=== PATIENT | female | born 1935 | race African-American/Black ===

== ENCOUNTER → 2019-07-04 | Day surgery (SDC) | payer OTHER ==
[2019-07-01 15:53] LABS: BASOPHILS % 0.5 % (0.0-1.0); EOSINOPHILS # (AUTO) 0.3 (0.0-0.4); EOSINOPHILS % 3.9 % (0.0-6.0); HEMATOCRIT 36.5 % (34.2-44.1); HEMOGLOBIN 11.7 g/dL (12.0-16.0); LYMPHOCYTES # (AUTO) 2.8 (1.0-3.2); LYMPHOCYTES % 35.9 % (18.0-39.1); MEAN CORPUSCULAR HEMOGLOBIN 29.3 pg (28-32); MEAN CORPUSCULAR HGB CONC 32.1 g/dL (31-35); MEAN CORPUSCULAR VOLUME 91.5 fL (81-99); MONOCYTES # (AUTO) 0.9 (0.2-0.8); MONOCYTES % 11.1 % (4.4-11.3); NEUTROPHILS # (AUTO) 3.8 (2.1-6.9); NEUTROPHILS % 48.2 % (38.7-80.0); PLATELET COUNT 204 x10e3/uL (140-360); RED BLOOD COUNT 3.99 x10e6/uL (3.6-5.1); RED CELL DISTRIBUTION WIDTH 14.6 % (11.7-14.4)
--- NOTE | 2019-07-01 16:05 | Diagnostic Imaging Report ---
Chest, PA and lateral. History: Preoperative condition. Comparison: 04/16/2017. Discussion: The heart is within normal limits of size. The mediastinal and hilar contours are unremarkable. A calcified granuloma is noted in the left midlung zone and is unchanged from prior examination. No focal consolidation, pleural effusion, or pneumothorax. Cardiac port projects over the left chest. IMPRESSION: No radiographic evidence of acute cardiopulmonary abnormality. Signed by: Eulogio Prado MD on 07/01/2019 4:01 PM
[~2019-07-04] MED LIST: ALEVE220 MG; AMLODIPINE BESYL5 MG PO; ASPIRIN81 MG; CALCIUM 600 +1 EAC6; CITALOPRAM HBR20 MG PO; COSOPT EYE DROP10 ML; CRESTOR10 MG PO; DEXAMETHASONE SOD PHOS INJ 4 MG/ML VIAL ONE; FENTANYL CITRATE/PF 100MCG/2 ML INJ ONE; FEXOFENADINE H180 MG; FLAXSEED OIL1000 M1; IBUPROFEN200 MG PO; KEFLEX500 MG PO; LIDOCAINE HCL 2% JELLY 5 ML TUBE ONE; LIDOCAINE HCL 2% LOCAL INJ 5 ML SDV VIAL INJ ONE; LOSARTAN POTAS100 MG PO; MECLIZINE HCL12.5 MG PO; MIDAZOLAM HCL 2 MG/2 ML VIAL ONE; MULTIPLE VITAM1 EAC1; NORCO 5-325 TA1 EACH PO; OMEPRAZOLE40 MG; ONDANSETRON HCL INJ 2MG/ML 2ML 2 MG/ML VIAL ONE; PROPOFOL IV EMULSION 10 MG/ML 20 ML VIAL ONE; SEVOFLURANE INHAL SOLN 250 ML PEN BTL ONE; SIMVASTATIN40 MG PO; TYLENOL PM; XALATAN2.5 ML
--- NOTE | 2019-07-04 13:35 | Operative Report ---
DATE OF PROCEDURE: SURGEON: Chelsea Ocampo MD PREOPERATIVE DIAGNOSIS: Thickened endometrium. POSTOPERATIVE DIAGNOSIS: Thickened endometrium. PROCEDURE: Hysteroscopy, D and C. COMPLICATIONS: None. ESTIMATED BLOOD LOSS: Minimal. DESCRIPTION OF PROCEDURE: The patient was taken to the OR. General anesthesia was induced. She was prepped and draped in a sterile fashion and placed in dorsal lithotomy position. After examination under anesthesia. Atrophic vagina. Normal size uterus. No adnexal masses. Right angle retractor was placed inside the vagina. Cervix was grasped with single-tooth tenaculum. Cervix was dilated to Hegar 8. Cavity length measured about 7 cm. Hysteroscope was introduced using saline for uterine distention showed normal atrophic uterine cavity. Hysteroscope was removed. Sharp curettings were obtained and sent to pathology. The patient tolerated the procedure well. Lap, instruments, and needle counts were correct x2 at the end of the procedure. Chelsea Ocampo MD DD/ELISSAL /[id number]
[2019-07-04 14:15] VITALS: BP 147/82
--- OUTSIDE RECORDS SUMMARY | 2019-07-08 12:49 | XMS REPORT ---
Author [facility] Address Unknown Phone Unavailable Care Team Providers Care Data Collector Name Role Phone IZA FIGUEROA Unavailable Unavailable Kiki RAMOS Unavailable Unavailable Problems This patient has no known problems. Allergies, Adverse Reactions, Alerts This patient has no known allergies or adverse reactions. Medications This patient has no known medications. Encounters Start Date/Time End Date/Time Encounter Type Admission Type Attending [facility] Care Facility Care Department Encounter ID 2019-03-25 17:45:55 Outpatient [facility] [id number] 2018-11-04 20:43:00 2018-11-04 20:43:00 Outpatient E [facility]SE MED [id number] Results Test Description Test Time Test Comments Text Results Atomic Results Result Comments CHEST 2 VIEWS 2019-07-01 16:00:00 [place] [address] Patient Name: QUIQUE AREVALO MR #: [id number] : 1935 Age/Sex: 84/F Req #: [id number] Adm Physician: Ordered by: IZA FIGUEROA MD Report #: [id number] Location: OR Room/Bed: Procedure: [id number] DX/CHEST 2 VIEWS Exam Date: 07/01/19 Exam Time: 1550 REPORT STATUS: Signed Chest, PA and lateral. History: Preoperative condition. Comparison: 04/16/2017. Discussion: The heart is within normal limits of size. The mediastinal and hilar contours are unremarkable. A calcified granuloma is noted in the left midlung zone and is unchanged from prior examination. No focal consolidation, pleural effusion, or pneumothorax. Cardiac port projects over the left chest. IMPRESSION: No radiographic evidence of acute cardiopulmonary abnormality. Signed by: Eulogio Rosenberg MD on 07/01/2019 4:01 PM Dictated By: EULOGIO ROSENBERG MD 1601 Transcribed By: GREGORIA on 07/01/19 1601 COPY TO: IZA FIGUEROA MD DIAG MAMM BILATERAL MATTHIEU CAD DIGITAL 2019-02-18 12:13:48 - DIAG MAMM BILATERAL MATTHIEU CAD DIGITALBILATERAL DIGITAL DIAGNOSTIC MAMMOGRAM 3D/2D WITH CAD: 02/18/2019CLINICAL: Previous breast cancer. Digital breast tomosynthesis was performed in addition to routine CC and MLO views. Current mammographic images were evaluated by either a [employer] M-Vu or a [employer]cker CAD (computer aided detection system). Comparison is made to exams dated 08/28/2016 mammogram, 08/27/2015 mammogram, and 08/22/2014 mammogram - [facility]. There are scattered fibroglandular tissues in both breasts. The left breast has been surgically removed. No suspicious mass, architectural distortion, malignant type calcification, or lymph node abnormality detected. INCOMPLETE ASSESSMENT: ADDITIONAL IMAGING EVALUATION RECOMMENDEDBilateral ultrasound pending for addit ional evaluation. Resume annual screening mammography in one year. - BREAST ULTRASOUND BILATERALULTRASOUND OF BOTH BREASTS AND BOTH AXILLA: 02/18/2019Comparison is made to exams dated 08/28/2016 mammogram, 08/27/2015 mammogram, and 08/22/2014 mammogram - [facility]. Real-time ultrasound of both breasts and both axilla and clinical breast exam was performed. No abnormalities were seen sonographically in the right breast or either axilla. The left breast has been surgically removed. The chest wall shows no abnormalities. Clinical breast exam was unremarkable. IMPRESSION: BENIGN There is no sonographic evidence of malignancy. Patient has been informed that she should have screening mammogram and supplemental ultrasound in 1 year.Kathryn Carvalho M.D. dm/:02/18/2019 12:13:48 copy to: Matteo Robertson MD, ph: [phone], fax: [phone] Technologist: Michell Schwab , [facility] sent: BIRADS 1-2 Combo FU Letter Mammogram BI- RADS: 0 Indeterminate Ultrasound BI-RADS: 2 Benign BREAST ULTRASOUND BILATERAL 2019-02-18 12:13:48 - DIAG MAMM BILATERAL MATTHIEU CAD DIGITALBILATERAL DIGITAL DIAGNOSTIC MAMMOGRAM 3D/2D WITH CAD: 02/18/2019CLINICAL: Previous breast cancer. Digital breast tomosynthesis was performed in addition to routine CC and MLO views. Current mammographic images were evaluated by either a [employer]Way[employer] M-Vu or a [employer] CAD (computer aided detection system). Comparison is made to exams dated 08/28/2016 mammogram, 08/27/2015 mammogram, and [facility] There are scattered fibroglandular tissues in both breasts. The left breast has been surgically removed. No suspicious mass, architectural distortion, malignant type calcification, or lymph node abnormality detected. INCOMPLETE ASSESSMENT: ADDITIONAL IMAGING EVALUATION RECOMMENDEDBilateral ultrasound pending for addit ional evaluation. Resume annual screening mammography in one year. - BREAST ULTRASOUND BILATERALULTRASOUND OF BOTH BREASTS AND BOTH AXILLA: 02/18/2019Comparison is made to exams dated 08/28/2016 mammogram, 08/27/2015 mammogram, and [facility]/2014 [facility]. Real-time ultrasound of both breasts and both axilla and clinical breast exam was performed. No abnormalities were seen sonographically in the right breast or either axilla. The left breast has been surgically removed. The chest wall shows no abnormalities. Clinical breast exam was unremarkable. IMPRESSION: BENIGN There is no sonographic evidence of malignancy. Patient has been informed that she should have screening mammogram and supplemental ultrasound in 1 year.Kathryn Carvalho M.D. dm/:02/18/2019 12:13:48 copy to: Matteo Robertson MD, ph: [phone], fax: [phone] Technologist: Michell FULLER, [facility] BIRADS 1-2 Combo FU Letter Mammogram BI- RADS: 0 Indeterminate Ultrasound BI-RADS: 2 Benign DIAG MAMM BILATERAL MATTHIEU CAD DIGITAL 2019-02-18 12:13:48 - DIAG MAMM BILATERAL MATTHIEU CAD DIGITALBILATERAL DIGITAL DIAGNOSTIC MAMMOGRAM 3D/2D WITH CAD: 02/18/2019CLINICAL: Previous breast cancer. Digital breast tomosynthesis was performed in addition to routine CC and MLO views. Current mammographic images were evaluated by either a [employer] M-Vu or a [employer] CAD (computer aided detection system). Comparison is made to exams dated 08/28/2016 mammogram, 08/27/2015 mammogram, and 08/22/2014 mammogram - [facility] There are scattered fibroglandular tissues in both breasts. The left breast has been surgically removed. No suspicious mass, architectural distortion, malignant type calcification, or lymph node abnormality detected. INCOMPLETE ASSESSMENT: ADDITIONAL IMAGING EVALUATION RECOMMENDEDBilateral ultrasound pending for addit ional evaluation. Resume annual screening mammography in one year. - BREAST ULTRASOUND BILATERALULTRASOUND OF BOTH BREASTS AND BOTH AXILLA: 02/18/2019Comparison is made to exams dated 08/28/2016 mammogram, 08/27/2015 mammogram, and 08/22/2014 mammogram - [facility]-. Real-time ultrasound of both breasts and both axilla and clinical breast exam was performed. No abnormalities were seen sonographically in the right breast or either axilla. The left breast has been surgically removed. The chest wall shows no abnormalities. Clinical breast exam was unremarkable. IMPRESSION: BENIGN There is no sonographic evidence of malignancy. Patient has been informed that she should have screening mammogram and supplemental ultrasound in 1 year.Kathryn Carvalho M.D. dm/:02/18/2019 12:13:48 copy to: Matteo Robertson MD, ph: [phone], fax: [phone] Technologist: Michell FULLER, [facility] sent: BIRADS 1-2 Combo FU Letter Mammogram BI- RADS: 0 Indeterminate Ultrasound BI-RADS: 2 Benign CHEST 2 VIEWS [place] [address] Patient Name: QUIQUE AREVALO MR #: [id number] : 1935 Age/Sex: 82/F Req #: [id number] [facility] Physician: Ordered by: PERCY RAMOS MD Report #: [id number] Location: OR Room/Bed: Procedure: [id number] DX/CHEST 2 VIEWS Exam Date: 04/16/17 Exam Time: 1130 REPORT STATUS: Signed PROCEDURE: CHEST 2 VIEWS TECHNIQUE: PA and lateral chest INDICATION: Preoperative evaluation for left breast mastectomy COMPARISON: None. FINDINGS: Lungs are clear and symmetrically inflated. Left calcified granuloma. No pleural effusions. Normal heart size. Moderate atherosclerosis of the descending thoracic and abdominal aorta. Intact skeleton. CONCLUSION: No acute abnormality. Dictated by: Natasha Medley M.D. on 04/16/2017 at 12:04 Electronically approved by: Natasha Medley M.D. on 04/16/2017 at 12:04 Dictated By: NATASHA MEDLEY MD 1205 Transcribed By: HERSON on 04/16/17 1205 COPY TO: PERCY RAMOS MD
--- OUTSIDE RECORDS SUMMARY | 2019-07-08 12:50 | XMS REPORT | Summary of Care ---
Author Author Rama Bella M.A. Organization Unknown Address [facility] Phone Unavailable Care Team Providers Care Glass Polisher Name Role Phone MOLINA Meza, MARY Unavailable Unavailable TAWNYA Acosta, COLLIN Unavailable Maryam HOROWITZ M.D., CAROLIN Unavailable Maryam BOWLING MD [place], COLLIN Le Unavailable Unavailable CARLOS MANUEL MCKOY, CAROLIN Unavailable Unavailable VALERIANO MCKOY [place], JAYASHREE Unavailable Unavailable LUISA JIMENEZ, PHIL Unavailable Unavailable Unavailable Unavailable Functional Status Name Dates Details Functional status health issues are not documented Status: Name Dates Details Cognitive status health issues are not documented Status: Problems Name Dates Details Eczema, allergic (692.9, L23.9) Status: Active Preventative health care (V70.0, Z00.00) Status: Active Colon cancer screening (V76.51, Z12.11) Status: Active Left low back pain (724.2, M54.5) Status: Active Rib pain (786.50, R07.81) Status: Active TMJ tenderness (524.62, M26.629) Status: Active Subungual hematoma of right foot, initial encounter (924.20, S90.221A) Status: Active Otitis media, right (382.9, H66.91) Status: Active Cerumen impaction (380.4, H61.20) Status: Active Breast cancer screening (V76.10, Z12.39) Status: Active Mammogram abnormal (793.80, R92.8) Status: Active Vertigo (780.4, R42) Status: Active Urinary tract infection (599.0, N39.0) Status: Active Breast cancer, female (174.9, C50.919) Status: Active Pain in both wrists (719.43, M25.531) Status: Active Subluxation of scapulothoracic joint (831.09) Status: Active Orthostasis (458.0, I95.1) Status: Active Hematochezia (578.1, K92.1) Status: Active Nausea and vomiting (787.01, R11.2) Status: Active Special Services Analysis Of Computerized Data Status: Active Duration Of Encounter - Review Of Prior Records (___ min) Status: Active Cataract, unspecified cataract type, unspecified laterality (366.9, H26.9) Status: Active Vasovagal near syncope (780.2, R55) Status: Active OM (onychomycosis) (110.1, B35.1) Status: Active Hypokalemia (276.8, E87.6) Status: Active Wax in ear (380.4, H61.20) Status: Active Stroke (434.91, I63.9) Status: Active Hyperlipidemia (272.4, E78.5) Status: Active Pulmonary hypertension (416.8, I27.20) Status: Active On statin therapy (V58.69, Z79.899) Status: Active Abnormal computed tomography of abdomen and pelvis (793.6, R93.5) Status: Active Excessive cerumen in right ear canal (380.4, H61.21) Status: Active Annual physical exam (V70.0, Z00.00) Status: Active Counseling regarding advanced directives (V65.49, Z71.89) Status: Active Acid reflux disease (530.81, K21.9) Status: Active Anemia, unspecified type (285.9, D64.9) Status: Active Arthropathy, chondrocalcinosis, pyrophosphate, 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, 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) Status: Active Back pain (724.5, M54.9) Status: Active Benign paroxysmal positional vertigo (386.11, H81.10) Status: Active Carcinoma of left female breast, unspecified estrogen receptor status, unspecified site of breast (174.9, C50.912) Status: Active Constipation (564.00, K59.00) Status: Active Decreased renal function (593.9, N28.9) Status: Active Depression (311, F32.9) Status: Active Diverticulosis (562.10, K57.90) Status: Active Essential hypertension, benign (401.1, I10) Status: Active Glaucoma of both eyes (365.9, H40.9) Status: Active Hypercholesterolemia (272.0, E78.00) Status: Active 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 * Start : 17-May-2014 Active Calcium 600+D TABS TAKE 1 TABLET DAILY * Refills: 0 Active Cosopt SOLN INSTILL 2 DROP TWICE DAILY * Refills: 0 Active Flaxseed Oil 1000 MG Oral Capsule TAKE 1 CAPSULE DAILY * Refills: 0 Active Multivitamins TABS TAKE 1 TABLET DAILY. * Refills: 0 Active Xalatan 0.005 % Ophthalmic Solution INSTILL 1 DROP INTO AFFECTED EYE(S) ONCE DAILY DIRECTED. * Refills: 0 Active amLODIPine Besylate 5 MG Oral Tablet TAKE 1 TABLET BY MOUTH TWICE DAILY * Quantity: 60 Refills: 5 MARY AUGUSTE N.P. * Start : 10-Dec-2018 Active Tylenol 8 Hour Arthritis Pain 650 MG Oral Tablet Extended Release TAKE ONE TABLET TWICE. * Quantity: 60 Refills: 3 COLLIN BOWLING M.D. * Start : 23-Aug-2018 Active Polyethylene Glycol 3350 Oral Powder MIX 1 CAPFUL IN 8 OUNCES OF WATER AND DRINK DAILY DIRECTED. * Quantity: 527 Refills: 1 COLLIN BOWLING M.D. * Start : 22-Oct-2018 Active Carvedilol 3.125 MG Oral Tablet TAKE 1 TABLET BY MOUTH TWICE DAILY * Quantity: 180 Refills: 1 COLLIN BOWLING M.D. * Start : 09-Nov-2018 Active Citalopram Hydrobromide 10 MG Oral Tablet TAKE 1 TABLET DAILY. * Quantity: 90 Refills: 1 COLLIN BOWLING M.D. Active Ciclopirox 8 % External Solution APPLY AND GENTLY MASSAGE INTO AFFECTED AREA(S) TWICE DAILY. * Quantity: 1 Refills: 4 COLLIN BOWLING M.D. * Start : 09-Dec-2018 End : 08-May-2019 Active 6.6 ML Bottle Clopidogrel Bisulfate 75 MG Oral Tablet TAKE 1 TABLET BY MOUTH DAILY * Quantity: 90 Refills: 1 COLLIN BOWLING M.D. * Start : 31-Dec-2018 Active Aspirin EC Low Dose 81 MG Oral Tablet Delayed Release TAKE 1 TABLET BY MOUTH EVERY DAY * Quantity: 90 Refills: 1 COLLIN BOWLING M.D. * Start : 21-Jan-2019 Active Rosuvastatin Calcium 20 MG Oral Tablet TAKE 1 TABLET DAILY * Quantity: 90 Refills: 2 CAROLIN HOROWITZ M.D. * Start : 11-Aug-2018 Active Losartan Potassium 25 MG Oral Tablet TAKE 1 TABLET DAILY in the evening * Quantity: 90 Refills: 0 COLLIN BOWLING M.D. Active Allergies and Adverse Reactions Name Dates Details metroNIDAZOLE CAPS (Allergy) Status: Active Tetracyclines (Allergy) Status: Active Past Medical History Name Dates Details History of Encounter for preprocedural cardiovascular examination (V72.81, Z01.810) Status: Resolved History of glaucoma (V12.49, Z86.69) Status: Resolved History of Osteoarthritis (V13.4) Status: Resolved Procedures Procedure Dates Details History of Dilation And Curettage Completed History of Hemorrhoidectomy Completed History of Cath Stent Placement Completed Immunization Name Dates Details Pneumococcal polysaccharide vaccine, 23 valent on: 17-Feb-2002 Influenza on: 01-May-2012 Fluzone INJ Lot #: [id number] on: 01-Apr-2013 Fluzone INJ Lot #: [id number] on: 31-Mar-2014 Fluzone INJ Lot #: [id number] on: 23-Mar-2015 Prevnar 13 Intramuscular Suspension Lot #: [id number] on: 21-Aug-2015 Fluzone High-Dose 0.5 ML Intramuscular Suspension Prefilled Syringe Lot #: [id number] on: 01-May-2016 Fluzone High-Dose 0.5 ML Intramuscular Suspension Prefilled Syringe Lot #: [id number] on: 18-May-2017 Fluzone High-Dose 0.5 ML Intramuscular Suspension Prefilled Syringe Lot #: [id number] on: 07-Apr-2018 Tdap on: 07-Jan-2019 Pneumococcal polysaccharide vaccine, 23 valent Lot #: [id number] on: 22-Apr-2019 Fluzone High-Dose 0.5 ML Intramuscular Suspension Prefilled Syringe Lot #: [id number] on: 22-Apr-2019 Family History Name Dates Details Family history of Hypertension (V17.49) Status: Active Family history of Pancreatic Cancer Susceptibility Status: Active Name Dates Details Family history of Breast Cancer (V16.3) Status: Active Social History Name Dates Details - Status: Name Dates Details Former smoker Vital Signs Date Test Result Details [id number] BP Systolic 122 mm[Hg] Status: Comments: Location: LUE; Position: Sitting BP Diastolic 67 mm[Hg] Status: Comments: Location: LUE; Position: Sitting Physical Findings 0 Status: Comments: Alcohol Screen - How many times in the past yr have you had 5 (for M) or 4 (for F) or 4 (for all > 65yrs) or more drinks in a day? Height 65 in Status: Weight 147.5 lb Status: Body Mass Index Calculated 24.55 kg/m2 Status: Body Surface Area Calculated 1.74 m2 Status: Temperature 97.9 f Status: Comments: Method: Oral Respiration Rate 16 /min Status: Heart Rate 73 /min Status: Results Date Description Value Details Results not documented Plan of Care Name Dates Details Planned Observations Planned Goals not documented Planned Encounters Appointment; COLLIN BOWLING M.D. On: 26-Jul-2019 11:00 Appointment; CHAZ MOLINA On: 08-Aug-2019 13:00 Appointment; CAROLIN HOROWITZ M.D. On: 11-Aug-2019 13:00 Appointment; AJYASHREE BAL On: 25-Oct-2019 10:30 Interventions Provided Follow-ups/Referrals* Follow-up visit in 3 months; Done: 22 Apr 2019 Medications/Immunizations Administered* Fluzone High-Dose 0.5 ML Intramuscular Suspension Prefilled Syringe; Done: 22 Apr 2019 * Pneumococcal polysaccharide vaccine, 23 valent; Done: 22 Apr 2019 Plan* Continue current medications same. Flu and pneumovax shot. Recommend shingles shot. RTC in three months. Instructions Name Dates Details Instructions not documented Encounters Appointment; COLLIN BOWLING M.D. Encounter Diagnosis: Problem not documented On: 18-May-2017 9:15 Appointment; MARY AUGUSTE NP Encounter Diagnosis: Problem not documented On: 24-Jun-2017 13:30 Appointment; COLLIN BOWLING M.D. Encounter Diagnosis: Problem not documented On: 30-Jun-2017 13:30 Appointment; COLLIN BOWLING M.D. Encounter Diagnosis: Problem not documented On: 01-Oct-2017 10:45 Appointment; COLLIN BOWLING M.D. Encounter Diagnosis: Problem not documented On: 01-Oct-2017 11:30 Appointment; COLLIN BOWLING M.D. Encounter Diagnosis: Problem not documented On: 02-Feb-2018 10:30 Appointment; COLLIN BOWLING M.D. Encounter Diagnosis: Problem not documented On: 05-Mar-2018 11:30 Appointment; MARY AUGUSTE NP Encounter Diagnosis: Problem not documented On: 07-Apr-2018 9:00 Appointment; DARCI MCNAMARA M.D. Encounter Diagnosis: Problem not documented On: 26-Apr-2018 13:00 Appointment; COLLIN BOWLING M.D. Encounter Diagnosis: Problem not documented On: 08-Jun-2018 11:00 Appointment; COLLIN BOWLING M.D. Encounter Diagnosis: Problem not documented On: 08-Jun-2018 11:00 Appointment; COLLIN BOWLING M.D. Encounter Diagnosis: Problem not documented On: 18-Jun-2018 14:45 Appointment; COLLIN BOWLING M.D. Encounter Diagnosis: Problem not documented On: 05-Jul-2018 15:15 Appointment; COLLIN BOWLING M.D. Encounter Diagnosis: Problem not documented On: 15-Jul-2018 13:30 Appointment; COLLIN BOWLING M.D. Encounter Diagnosis: Problem not documented On: 26-Jul-2018 13:30 Appointment; CAROLIN HOROWITZ M.D. Encounter Diagnosis: Problem not documented On: 02-Aug-2018 15:00 Appointment; COLLIN BOWLING M.D. Encounter Diagnosis: Problem not documented On: 23-Aug-2018 13:30 Appointment; HEMATPOXUAN, SHIRLEYASHAYAR Encounter Diagnosis: Problem not documented On: 31-Aug-2018 10:00 Appointment; SOUTH, DEVICE Encounter Diagnosis: Problem not documented On: 05-Oct-2018 10:00 Appointment; COLLIN BOWLING M.D. Encounter Diagnosis: Problem not documented On: 21-Oct-2018 13:30 Appointment; COLLIN BOWLING M.D. Encounter Diagnosis: Problem not documented On: 09-Dec-2018 15:15 Appointment; COLLIN BOWLING M.D. Encounter Diagnosis: Problem not documented On: 21-Jan-2019 10:00 Appointment; CAROLIN HOROWITZ M.D. Encounter Diagnosis: Problem not documented On: 03-Feb-2019 10:20 Appointment; CHITO UMANZOR M.D. Encounter Diagnosis: Problem not documented On: 01-Mar-2019 9:30 Appointment; JAYASHREE BAL Encounter Diagnosis: Problem not documented On: 19-Apr-2019 10:30 Appointment; COLLIN BOWLING M.D. Encounter Diagnosis: Problem not documented On: 22-Apr-2019 13:30
== END | disposition home or self-care (01) ==
LOC: OR 09:40
PROVIDERS: ATTEND Obstetrics & Gynecology
DX: N85.00 Endometrial hyperplasia, unspecified (principal); I69.351 Hemiplegia and hemiparesis following cerebral infarction affecting right dominant side; R42 Dizziness and giddiness; Z88.1 Allergy status to other antibiotic agents; Z01.810 Encounter for preprocedural cardiovascular examination; Z01.812 Encounter for preprocedural laboratory examination; Z01.818 Encounter for other preprocedural examination; Z79.82 Long term (current) use of aspirin
CPT/HCPCS: 36415; 58558; 71046; 85025; 87086; 88305; 93005; J1100; J2001 ×2; J2250; J2405; J2704; J3010